=== PATIENT | female | born 1995 | race Caucasian/White ===

== ENCOUNTER 2019-04-01 13:03 | Emergency (ER) | payer SELFPAY ==
[~2019-04-01 13:03] MED LIST: IBUP-56 PO; IBUP600T22 PO; LOR5/325 PO; SERT25TA87 PO; TRAZ100T31 PO
[2019-04-01] MEDS ORDERED: METF-450 PO (13:23)
[2019-04-01] MEDS ORDERED: BUSP7.5T7 PO (13:23)
[2019-04-01] MEDS ORDERED: CARI1.5C PO (13:23)
[2019-04-01] MEDS ORDERED: VILA40TA PO (13:23)
[2019-04-01] MEDS ORDERED: CHOL10005 PO (13:23)
[2019-04-01] MEDS ORDERED: BUPR-124 PO (13:23)
--- NOTE | 2019-04-01 13:35 | ER Report ---
History and Physical Time Seen By MD: 13:31 Hx. of Stated Complaint: Patient states she woke up last night and jerking movements happening in her legs and arms that went on from [id number] on and off. no loss of conciousness. HPI/ROS CHIEF COMPLAINT: Body shaking HISTORY OF PRESENT ILLNESS: Patient is a 23-year-old female, who presents to the emergency department after waking up around 10 PM last night noticing that her arms and legs were shaking. This would happen for a few minutes and then resolved and occurred multiple times to approximate 4:00 this morning. Spontaneously symptoms have stopped. She denies any loss of consciousness during these episodes. She denies any fevers or chills. She denies headache. She has not had similar episodes. Patient is here from [place] a ranch. She does have a history of mother who has epilepsy. The patient denies chest pain or shortness of breath she denies nausea vomiting or abdominal pain. She denies any recent changes in her medications. REVIEW OF SYSTEMS: Constitutional: No fever, no chills. Cardiovascular: No chest pain, no palpitations. Respiratory: No cough, no shortness of breath. Gastrointestinal: No abdominal pain, no vomiting. Genitourinary: No hematuria. Musculoskeletal: No back pain. Skin: No rashes. Neurological: No headache. Shaking Allergies: Coded Allergies: carrot (Verified Allergy, Severe, tongue swelling and itchy, 04/01/19) Home Meds Reported Medications Cholecalciferol (Vitamin D3) (VITAMIN D3) 1,000 Unit Tablet, 9[address]24 UNIT PO twice a week, TAB 04/01/19 Metformin Hcl (METFORMIN HCL) 500 Mg Tablet, 2 TAB PO BID, TAB 04/01/19 Bupropion Hcl (BUPROPION XL) 150 Mg Tab.er.24h, 150 MG PO QAM, #10 TAB 04/01/19 Buspirone Hcl (BUSPIRONE HCL) 7.5 Mg Tablet, 7.5 MG PO BID PRN for ANXIETY, #10 TAB 04/01/19 Vilazodone Hydrochloride (VIIBRYD) 40 Mg Tablet, 40 MG PO QDAY 04/01/19 Cariprazine Hydrochloride (Vraylar) 1.5 Mg Capsule, 1 CAP PO QDAY 04/01/19 Discontinued Reported Medications Sertraline Hcl (ZOLOFT) 25 Mg Tablet, PO QDAY, TAB 05/13/15 Trazodone Hcl (TRAZODONE HCL) 100 Mg Tablet, PO HS, TAB 05/13/15 Discontinued Scripts Hydrocodone Bit/Acetaminophen (HYDROCODON-ACETAMINOPHEN 5-325) 1 Each Tablet, 1 EACH PO Q4-6H for PAIN, #12 TAKE ONE TABLET BY MOUTH EVERY 4-6 HOURS NEEDED FOR PAIN Prov:CHADWICK FENTON MD 06/03/15 Ibuprofen (IBUPROFEN) 600 Mg Tablet, 1 TAB PO Q6H for PAIN, #30 TAB Prov:CHADWICK FENTON MD 06/03/15 Past Medical/Surgical History Past medical history for bipolar disorder, history of insulin resistance. Hx Smoking: No Hx Substance Use Disorder: No Constitutional Vital Sign - Last 24 Hours 04/01/19 04/01/19 04/01/19 04/01/19 13:14 13:18 13:30 13:33 Temp 97.9 Pulse 72 75 69 Resp 18 12 18 B/P (MAP) 120/68 107/77 (87) Pulse Ox 96 95 94 O2 Delivery Room Air 04/01/19 04/01/19 04/01/19 04/01/19 13:48 14:00 14:03 14:18 Pulse 74 69 78 Resp 12 15 16 B/P (MAP) 120/80 (93) Pulse Ox 94 94 94 04/01/19 04/01/19 14:30 14:33 Pulse 71 Resp 18 B/P (MAP) 108/79 (89) Pulse Ox 94 Physical Exam General/Constitutional: Patient is awake, alert, nontoxic and in no acute r espiratory distress. Head: Normocephalic and atraumatic. Eyes: Conjunctival clear, Pupils are equal and reactive to light. Extraocular muscles are intact and symmetrical. Sclera are clear and anicteric. Ears:External canals are clear. Tympanic membranes are clear with normal landmarks and light reflex. Nares: No rhinorrhea or bleeding. Turbinates are pink and moist. Oropharyngeal: Mucous membranes are moist. There is no pharyngeal erythema or exudate. There are no palatal petechiae. Uvula is midline and symmetrical. Neck: Supple, no adenopathy. Cardiovascular: Heart is regular rate and rhythm without audible murmurs, rubs or gallops. Pulmonary: Lungs are clear to auscultation bilaterally. There are no wheezes, rales, or rhonchi. Chest rise is symmetrical Abdomen: Soft, nontender, no guarding or peritoneal signs. Extremities: No gross deformities, No peripheral cyanosis. Able to move all 4 extremities. Neuro: Alert and oriented X3, Cranial nerves 2 thru 12 are intact and symmetrical Skin: No rashes, skin is warm dry and well perfused. Medical Decision Making Data Points Result Diagram: 04/01/19 1349 04/01/19 1349 Laboratory Hematology Test 04/01/19 13:07 04/01/19 13:49 Urine Color Yellow Urine Clarity Clear Urine pH 7.0 pH (4.8-9.5) Urine Specific [place] 1.019 Urine Protein Negative mg/dL (NEGATIVE) Urine Glucose (UA) Negative mg/dL (NEGATIVE) Urine Ketones Negative mg/dL (NEGATIVE) Urine Blood Negative (NEGATIVE) Urine Nitrite Negative (NEGATIVE) Urine Bilirubin Negative (NEGATIVE) Urine Urobilinogen Negative mg/dL (0.2-1.9) Urine Leukocyte Esterase Negative (NEGATIVE) Urine RBC None /HPF (0-2/HPF) Urine WBC <1 /HPF (0-5/HPF) Urine Squamous Epithelial Cells Many /LPF (</=FEW) Urine Bacteria Few /HPF (NONE-FEW) Urine Mucus None /HPF (NONE-FEW) Urine HCG, Qualitative Negative (NEGATIVE) Red Blood Count 4.80 M/uL (4.17-5.56) Mean Corpuscular Volume 92.7 fL (80.0-96.0) Mean Corpuscular Hemoglobin 31.5 pg (26.0-33.0) Mean Corpuscular Hemoglobin Concent 34.0 g/dL (32.0-36.0) Red Cell Distribution Width 13.1 % (11.5-14.5) Mean Platelet Volume 8.0 fL (7.2-11.1) Neutrophils (%) (Auto) 55.7 % (39.4-72.5) Lymphocytes (%) (Auto) 36.8 % (17.6-49.6) Monocytes (%) (Auto) 5.5 % (4.1-12.4) Eosinophils (%) (Auto) 1.3 % (0.4-6.7) Basophils (%) (Auto) 0.7 % (0.3-1.4) Nucleated RBC Relative Count (auto) 0.0 /100WBC Neutrophils # (Auto) 3.7 K/uL (2.0-7.4) Lymphocytes # (Auto) 2.5 K/uL (1.3-3.6) Monocytes # (Auto) 0.4 K/uL (0.3-1.0) Eosinophils # (Auto) 0.1 K/uL (0.0-0.5) Basophils # (Auto) 0.0 K/uL (0.0-0.1) Nucleated RBC Absolute Count (auto) 0.00 K/uL Sodium Level 141 mmol/L (137-145) Potassium Level 4.0 mmol/L (3.5-5.0) Chloride Level 105 mmol/L (98-107) Carbon Dioxide Level 26 mmol/L (22-31) Blood Urea Nitrogen 11 mg/dl (7-18) Creatinine 0.80 mg/dl (0.52-1.04) Glomerular Filtration Rate Calc > 60.0 Random Glucose 92 mg/dl (75-110) Calcium Level 9.5 mg/dl (8.4-10.2) Magnesium Level 1.9 mg/dl (1.7-2.2) Chemistry Test 04/01/19 13:07 04/01/19 13:49 Urine Color Yellow Urine Clarity Clear Urine pH 7.0 pH (4.8-9.5) Urine Specific [place] 1.019 Urine Protein Negative mg/dL (NEGATIVE) Urine Glucose (UA) Negative mg/dL (NEGATIVE) Urine Ketones Negative mg/dL (NEGATIVE) Urine Blood Negative (NEGATIVE) Urine Nitrite Negative (NEGATIVE) Urine Bilirubin Negative (NEGATIVE) Urine Urobilinogen Negative mg/dL (0.2-1.9) Urine Leukocyte Esterase Negative (NEGATIVE) Urine RBC None /HPF (0-2/HPF) Urine WBC <1 /HPF (0-5/HPF) Urine Squamous Epithelial Cells Many /LPF (</=FEW) Urine Bacteria Few /HPF (NONE-FEW) Urine Mucus None /HPF (NONE-FEW) Urine HCG, Qualitative Negative (NEGATIVE) White Blood Count 6.7 k/uL (4.5-11.0) Red Blood Count 4.80 M/uL (4.17-5.56) Hemoglobin 15.1 g/dL (12.0-16.0) Hematocrit 44.5 % (34.0-47.0) Mean Corpuscular Volume 92.7 fL (80.0-96.0) Mean Corpuscular Hemoglobin 31.5 pg (26.0-33.0) Mean Corpuscular Hemoglobin Concent 34.0 g/dL (32.0-36.0) Red Cell Distribution Width 13.1 % (11.5-14.5) Platelet Count 312 K/uL (150-450) Mean Platelet Volume 8.0 fL (7.2-11.1) Neutrophils (%) (Auto) 55.7 % (39.4-72.5) Lymphocytes (%) (Auto) 36.8 % (17.6-49.6) Monocytes (%) (Auto) 5.5 % (4.1-12.4) Eosinophils (%) (Auto) 1.3 % (0.4-6.7) Basophils (%) (Auto) 0.7 % (0.3-1.4) Nucleated RBC Relative Count (auto) 0.0 /100WBC Neutrophils # (Auto) 3.7 K/uL (2.0-7.4) Lymphocytes # (Auto) 2.5 K/uL (1.3-3.6) Monocytes # (Auto) 0.4 K/uL (0.3-1.0) Eosinophils # (Auto) 0.1 K/uL (0.0-0.5) Basophils # (Auto) 0.0 K/uL (0.0-0.1) Nucleated RBC Absolute Count (auto) 0.00 K/uL Glomerular Filtration Rate Calc > 60.0 Calcium Level 9.5 mg/dl (8.4-10.2) Magnesium Level 1.9 mg/dl (1.7-2.2) Urinalysis Test 04/01/19 13:07 Urine Color Yellow Urine Clarity Clear Urine pH 7.0 pH (4.8-9.5) Urine Specific [place] 1.019 Urine Protein Negative mg/dL (NEGATIVE) Urine Glucose (UA) Negative mg/dL (NEGATIVE) Urine Ketones Negative mg/dL (NEGATIVE) Urine Blood Negative (NEGATIVE) Urine Nitrite Negative (NEGATIVE) Urine Bilirubin Negative (NEGATIVE) Urine Urobilinogen Negative mg/dL (0.2-1.9) Urine Leukocyte Esterase Negative (NEGATIVE) Urine RBC None /HPF (0-2/HPF) Urine WBC <1 /HPF (0-5/HPF) Urine Squamous Epithelial Cells Many /LPF (</=FEW) Urine Bacteria Few /HPF (NONE-FEW) Urine Mucus None /HPF (NONE-FEW) Urine HCG, Qualitative Negative (NEGATIVE) EKG/Imaging Imaging FACILITY: [facility] [place] PATIENT NAME: Natalie Ortiz : 1995 MR: [id number] V: [id number] EXAM DATE: [id number] ORDERING PHYSICIAN: SHERIF CASILLAS TECHNOLOGIST: Location: [facility] Patient: Natalie Ortiz : 1995 Visit/Account:[id number] Date of Sevice: 04/01/2019 EXAMINATION: CT HEAD WITHOUT CONTRAST COMPARISON: None available HISTORY: myoclonus PROCEDURE: Noncontrast CT from the vertex through the skull base. One of the following dose optimization techniques was utilized in the performance of this exam: Automated exposure control; adjustment of the mA and/or kV according to the patient's size; or use of an iterative reconstruction technique. Specific details can be referenced in the facility's radiology CT exam operational policy. FINDINGS: Brain volume: Age-appropriate. Hemorrhage/extra-axial fluid: None. Mass effect/midline shift/edema: None. Ischemia: Cortés-white differentiation is preserved. Ventricles and basal cisterns: Within normal limits. Posterior fossa: Negative. Vessels: Negative. Calvarium, skull base, and scalp: Negative. Visualized sinuses and orbits: Within normal limits. IMPRESSION: Negative noncontrast head CT. Report Dictated By: Jovanny Alexandre MD at 04/01/2019 2:24 PM Report E-Signed By: Jovanny Alexandre MD at 04/01/2019 2:29 PM WSN:[id number] ED Course/Re-evaluation ED Course Plan at this time will be to check CBC and basic metabolic panel, we'll do CT of the head urinalysis and test along with magnesium. Decision to Disposition Date: Apr 01, 2019 Decision to Disposition Time: 14:42 Depart Departure Latest Vital Signs Vital Signs Date Time Temp Pulse Resp B/P (MAP) Pulse Ox O2 Delivery O2 Flow Rate FiO2 6/15/19 14:33 71 18 94 04/01/19 14:30 108/79 (89) 04/01/19 13:14 97.9 Room Air Impression: Primary Impression: Myoclonic disorder Condition: Improved Disposition: HOME OR SELF-CARE Referrals: KELSEY WADDELL DO Patient Instructions: Muscle Spasm (ED) SHERIF CASILLAS MD Apr 01, 2019 13:35
[2019-04-01 13:56] LABS: PLATELET COUNT, AUTOMATED 312 K/uL (150-450)
[2019-04-01 14:30] VITALS: BP 108/79
--- NOTE | 2019-04-01 14:33 | RADIOLOGY IMAGING REPORT ---
FACILITY: [facility] [place] PATIENT NAME: Natalie Ortiz : 1995 MR: [id number] V: [id number] EXAM DATE: ORDERING PHYSICIAN: SHERIF CASILLAS TECHNOLOGIST: Location: [facility] Patient: Natalie Ortiz : 1995 Visit/Account:[id number] Date of Sevice: 04/01/2019 EXAMINATION: CT HEAD WITHOUT CONTRAST COMPARISON: None available HISTORY: myoclonus PROCEDURE: Noncontrast CT from the vertex through the skull base. One of the following dose optimizat ion techniques was utilized in the performance of this exam: Automated exposure control; adjustment o f the mA and/or kV according to the patient's size; or use of an iterative reconstruction technique. Specific details can be referenced in the facility's radiology CT exam operational policy. FINDINGS: Brain volume: Age-appropriate. Hemorrhage/extra-axial fluid: None. Mass effect/midline shift/edema: None. Ischemia: Cortés-white differentiation is preserved. Ventricles and basal cisterns: Within normal limits. Posterior fossa: Negative. Vessels: Negative. Calvarium, skull base, and scalp: Negative. Visualized sinuses and orbits: Within normal limits. IMPRESSION: Negative noncontrast head CT. Report Dictated By: Jovanny Alexandre MD at 04/01/2019 2:24 PM Report E-Signed By: Jovanny Alexandre MD at 04/01/2019 2:29 PM WSN:[id number]
== END 2019-04-01 15:00 | disposition home or self-care (01) ==
LOC: ER 13:28
DX: G25.3 Myoclonus (principal)
CPT/HCPCS: 36415; 70450; 81001; 81025; 82310; 82374; 82435; 82565; 82947; 83735; 84132; 84295; 84520; 85025; 99284